=== PATIENT | male | born 1990 | race Caucasian/White ===

== ENCOUNTER 2017-12-12 03:47 | Inpatient (IN) | payer OTHER ==
[2017-12-12] VITALS (8 sets, daily range): BP systolic 107–119; BP diastolic 58–69; PULSE 86–117; RESP 17–20; TEMP 97.3–99; O2SAT 96–100
[~2017-12-12] VITALS: Ht 180.3 cm; Wt 79.6 kg
[2017-12-12] MEDS ORDERED: ONDANSETRON HCL 4 MG/2 ML VIAL ONE (03:52)
[2017-12-12] MEDS ORDERED: MORPHINE SULFATE 4 MG/ML INJ ONE ×2 (03:52→04:07)
[2017-12-12] MEDS ORDERED: PROPOFOL 1000 MG/100 ML INJ 100 ML ONE (03:57)
[2017-12-12] MEDS ORDERED: IOHEXOL 350 MG/ML 10 ML VIAL (for RAD DIAG) IVCONTRAST ONE (04:21)
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
[2017-12-12 04:29] LABS: AUTOMATED NEUTROPHIL # 15.3 TH/MM3 (1.8-7.7); BASOPHIL # 0.1 TH/MM3 (0-0.2); BASOPHIL % 0.4 % (0.0-2.0); EOSINOPHIL % 0.1 % (0.0-4.0); HEMATOCRIT 44.5 % (39.0-51.0); HEMOGLOBIN 15.3 GM/DL (13.0-17.0); LYMPH % 10.8 % (9.0-44.0); MEAN CELL VOLUME 88.9 FL (80.0-100.0); MEAN CORPUSCULAR HEMOGLOBIN 30.6 PG (27.0-34.0); MEAN CORPUSCULAR HGB CONC 34.4 % (32.0-36.0); MEAN PLATELET VOLUME 8.4 FL (7.0-11.0); MONOCYTE # 1.1 TH/MM3 (0-0.9); NEUT % 82.7 % (16.0-70.0); PLATELET COUNT 296 TH/MM3 (150-450); RED BLOOD COUNT 5.01 MIL/MM3 (4.50-5.90); RED CELL DISTRIBUTION WIDTH 13.4 % (11.6-17.2); WHITE BLOOD COUNT 18.5 TH/MM3 (4.0-11.0)
[2017-12-12 04:33] LABS: INTERNATIONAL NORMALIZED RATIO 1.2 RATIO
[2017-12-12] MEDS ORDERED: MISCELLANEOUS NURSING INFORMATION XX SCH (04:45)
[2017-12-12] MEDS ORDERED: ENALAPRILAT 1.25 MG/ML VIAL IV PUSH PRN (04:45)
[2017-12-12] MEDS ORDERED: SODIUM CHLORIDE 0.9% FLUSH 10 ML FLUSH IV FLUSH PRN (04:45)
[2017-12-12] MEDS ORDERED: CHLORHEXIDINE GLUCONATE 2 % 1 PACK (2 CLOTHS) TOP PRN (04:45)
[2017-12-12] MEDS ORDERED: ONDANSETRON HCL 4 MG/2 ML VIAL IV PUSH PRN (04:45)
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
[2017-12-12] MEDS ORDERED: MORPHINE SULFATE 4 MG/ML INJ IV PUSH PRN (05:45)
[2017-12-12] MEDS: SODIUM CHLOR 0.9% 1000 ML INJ 1,000 ML IV SCH (06:09)
[2017-12-12] MEDS ORDERED: DIPHTH/TETANUS/ACEL PERTUSSIS (BOOSTER) 0.5 ML VIAL/PFS IM ONE (06:16)
[2017-12-12] MEDS ORDERED: ceFAZolin 2 GM PREMIX 50 ML ONE (06:16)
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
[2017-12-12] MEDS ORDERED: POTASSIUM CHLOR 40 MEQ PREMIX 100 ML IV PRN ×2 (06:45)
[2017-12-12] MEDS ORDERED: MAGNESIUM OXIDE 400 MG TAB PO PRN (06:45)
[2017-12-12] MEDS ORDERED: POTASSIUM PHOSPHATE INJ 30 MMOL in SODIUM CHLOR 0.9% 250 ML INJ 250 ML IV PRN (06:45)
[2017-12-12] MEDS ORDERED: POTASSIUM PHOSPHATE MONOBASIC 500 MG TAB PO PRN (06:45)
[2017-12-12] MEDS ORDERED: MAGNESIUM SULFATE INJ 2 GM in SODIUM CHLORIDE 0.9% INJ 96 ML IV PRN (06:45)
[2017-12-12] MEDS ORDERED: POTASSIUM CHLOR 20 MEQ PREMIX 100 ML IV PRN ×2 (06:45)
[2017-12-12] MEDS ORDERED: POTASSIUM CHLORIDE 20 MEQ PWD PACKET PO PRN (06:45)
[2017-12-12] MEDS ORDERED: POTASSIUM PHOSPHATE MONOBASIC 500 MG TAB PO/TUBE PRN (06:45)
[2017-12-12] MEDS ORDERED: MAGNESIUM SULFATE INJ 4 GM in SODIUM CHLORIDE 0.9% INJ 92 ML IV PRN (06:45)
[2017-12-12] MEDS ORDERED: SODIUM PHOSPHATE INJ 30 MMOL in SODIUM CHLOR 0.9% 250 ML INJ 240 ML IV PRN (06:45)
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
[2017-12-12 07:48] LABS: MAGNESIUM 1.9 MG/DL (1.5-2.5); PHOSPHORUS 4.5 MG/DL (2.5-4.9)
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
[2017-12-12] MEDS: MORPHINE SULFATE 4 MG/ML INJ IV PUSH PRN (08:33)
[2017-12-12] MEDS: PANTOPRAZOLE SODIUM 40 MG VIAL IVP SCH (09:00)
[2017-12-12] MEDS: DOCUSATE SODIUM 100 MG CAP PO SCH ×2 (09:00→21:00)
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
[2017-12-12] MEDS ORDERED: NEOMYCIN/POLYMYXIN 1 ML G.U. IRRIGANT ONE (10:51)
[2017-12-12] MEDS ORDERED: LIDOCAINE 1%/EPINEPHrine 1:100,000 SOLN 30 ML VIAL ONE (10:54)
[2017-12-12] MEDS ORDERED: VANCOMYCIN 500 MG VIAL ONE (10:54)
--- NOTE | 2017-12-12 11:21 | HHI.PR ---
Immediate Post Op Note Procedure Date: Dec 12, 2017 Pre Op Diagnosis: Post Op Diagnosis: same Surgeon: Netting Inspector(s): see or sheet Findings: good hemostats Complications: none Specimen(s) removed: none Anesthesia: General Drains: None Patient to: PACU Patient Condition: Fair Norris Tan MD Dec 12, 2017 11:21
[2017-12-12] MEDS ORDERED: TOBRAMYCIN/DEXAMETHASONE OPTH OINT 3.5 GM TUBE ONE (11:27)
[2017-12-12] MEDS ORDERED: ROCURONIUM INJ 50 MG/5 ML SYRINGE IV PUSH ONE (12:00)
[2017-12-12] MEDS ORDERED: PHENYLEPH/NS 1000 MCG/10 ML SYR IV ONE (12:00)
[2017-12-12] MEDS ORDERED: ceFAZolin INJ 1,000 MG VIAL IV ONE ×2 (12:00→12:02)
[2017-12-12] MEDS ORDERED: PHENYLEPHRINE HCL 10 MG/ML VIAL IV ONE (12:00)
[2017-12-12] MEDS ORDERED: PROPOFOL 200 MG/20 ML AMP IV ONE (12:00)
[2017-12-12] MEDS ORDERED: SUCCINYLCHOLINE CHLORIDE 200 MG/10 ML VIAL IV ONE (12:00)
[2017-12-12] MEDS ORDERED: ONDANSETRON HCL 4 MG/2 ML VIAL IV ONE (12:00)
[2017-12-12] MEDS ORDERED: NORMOSOL R INJ 2,000 ML IV ONE (12:00)
[2017-12-12] MEDS ORDERED: ePHEDrine/NS 25 MG/5 ML SYRINGE IV ONE (12:00)
[2017-12-12] MEDS ORDERED: DEXAMETHASONE SOD PHOS 4 MG/ML VIAL IV ONE (12:00)
[2017-12-12] MEDS ORDERED: LIDOCAINE HCL 1% PF 5 ML SYRINGE OTHER ONE (12:00)
[2017-12-12] MEDS ORDERED: LACTATED RINGER'S 1000 ML INJ 2,000 ML IV ONE (12:00)
[2017-12-12] MEDS ORDERED: GLYCOPYRROLATE 1 MG/5 ML SYRINGE IV PUSH ONE (12:00)
[2017-12-12] MEDS ORDERED: ACETAMINOPHEN 1000 MG/100 ML 100 ML IV ONE (13:47)
[2017-12-12] MEDS ORDERED: BACITRACIN TOP OINT 15 GM TUBE ONE (14:40)
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
[2017-12-12] MEDS ORDERED: TOBRAMYCIN 0.3%/DEXAMETHASONE 0.1% OPHT SUSP 5 ML BTL ONE (15:36)
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
--- NOTE | 2017-12-12 16:33 | PD.OP ---
Operative Report Date of Surgery: Dec 12, 2017 Preoperative Diagnosis: (1) Laceration of forehead, complicated (2) Ruptured globe of right eye (3) Eyelid laceration, right Postoperative Diagnosis: (1) Laceration of forehead, complicated (2) Ruptured globe of right eye (3) Eyelid laceration, right Procedure: ruptured globe repair right eye, repair of complex right forehead, right eyebrow , right eyelid laceration Surgeon: Lisa Lezama Appliance Service Technician(s): none Operation and Findings: Patient was consented for surgery and taken back to the operating room. He was put under general anesthesia and prepped and draped in the usual sterile fashion for ophthalmic surgery. On examination he was found to have a stellate, complex 12 cm laceration/degloving injury of right forehead, right eyebrow and right eyelid. This was repaired with 3-0 chromic gut and 3-0 Prolene sutures. A wire lid speculum was placed in the right eye. A horizontal corneoscleral laceration was seen across the entire cornea and extending 4mm posterior to the limbus at 3 o'clock. A conjunctival peritomy was performed from 12 o'clock to 4 o'clock. OcuCoat was injected into the eye to reform it. 10-0 nylon was used to close the cornea. 8-0 nylon was used to close the limbus. 7-0 Vicryl was used to close the sclera and conjunctiva. Subconjunctival TobraDex was injected at the end of the case. The incisions were irrigated and found to be watertight. Tobradex ointment, a patch, and shield were placed on the right eye. The patient was sent to PACU in stable condition. Lisa Lezama MD Dec 12, 2017 16:33
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
[2017-12-12] MEDS ORDERED: LIDOCAINE HCL 2% 50 ML VIAL ONE (17:44)
--- NOTE | 2017-12-12 18:40 | RADRPT ---
EXAM DATE/TIME: 12/12/2017 16:31 [facility] COMPARISON: No previous studies available for comparison. INDICATIONS : Right elbow ORIF. MEDICAL HISTORY : None. SURGICAL HISTORY : None. ENCOUNTER: Initial ACUITY: 1 day PAIN SCORE: Non-responsive. LOCATION: Right Elbow FINDINGS: Multiple views were obtained during ORIF. Radial capitellar joint dislocation has been successfully r educed CONCLUSION: Successful reduction of a dislocated radial capitellar joint. Chad Smith MD on December 12, 2017 at 18:35 Board Certified Radiologist. This report was verified electronically.
[2017-12-12] MEDS ORDERED: DO NOT ADM ANY ANTICOAGULANT DRUGS PRN (19:15)
--- NOTE | 2017-12-12 19:19 | PD.ORT.PN ---
Subjective Subjective Remarks Patient reports pain controlled in PACU. Denies paresthesias right hand and arm. Objective Vitals Vital Signs Date Time Temp Pulse Resp B/P (MAP) Pulse Ox O2 Delivery O2 Flow Rate FiO2 12/12/17 19:15 100 14 126/69 (88) 100 Room Air 2 12/12/17 19:00 100 14 124/66 (85) 100 Room Air 2 12/12/17 18:45 98.0 108 14 132/70 (90) 100 Nasal Cannula 2 12/12/17 10:00 96 12/12/17 08:00 97.7 86 17 116/69 (85) 96 12/12/17 08:00 94 12/12/17 07:57 100 21 12/12/17 07:00 100 Room Air 12/12/17 06:00 Room Air 98 12/12/17 06:00 97 12/12/17 06:00 97.3 97 18 107/59 (75) 99 12/12/17 04:00 100 2.00 12/12/17 03:47 100 21 12/12/17 03:47 100 21 I/O 12/11/17 12/11/17 12/11/17 12/12/17 12/12/17 12/12/17 07:00 15:00 23:00 07:00 15:00 23:00 Intake Total 4500 ml Output Total 550 ml 1300 ml Balance -550 ml 3200 ml Other 4500 ml Output Urine Total 550 ml 1300 ml # Voids 1 Result Diagram: 12/12/17 0353 Other Results Laboratory Tests Test 12/12/17 03:53 Prothromb Time International Ratio 1.2 RATIO Prothrombin Time 12.0 SEC (9.8-11.6) Imaging Last 24 hours Impressions Thoracic Spine CT 12/12/174 Signed Impressions: Service Date/Time: Tuesday, December 12, 2017 04:17 - CONCLUSION: Minimal degenerative findings. No evidence of thoracic spine fracture. Kana Mendoza MD Pelvis X-Ray 12/12/174 Signed Impressions: Service Date/Time: Tuesday, December 12, 2017 03:51 - CONCLUSION: Right hip dislocation. Crescentic bone fragment likely representing acetabular fracture. Kana Mendoza MD Maxillofacial CT 12/12/17 0354 Signed Impressions: Service Date/Time: Tuesday, December 12, 2017 04:11 - CONCLUSION: 1. Injury of the right globe with marked deformity and hyperdensity indicating rupture of the right globe. 2. Bilateral nasal bone fractures, anterior wall left maxillary sinus fracture, medial wall, superior wall, and inferior wall left orbit fractures. 3. Extensive subcutaneous emphysema in the left side of the face. Kana Mendoza MD Lumbar Spine CT 12/12/17 0354 Signed Impressions: Service Date/Time: Tuesday, December 12, 2017 04:17 - CONCLUSION: No evidence of fracture of lumbar spine. Kana Mendoza MD Head CT 12/12/17 0354 Signed Impressions: Service Date/Time: Tuesday, December 12, 2017 04:11 - CONCLUSION: 1. Marked deformity and injury of the right globe. 2. Nasal bone/left-sided facial bone fractures. Stents in subcutaneous emphysema. 3. No acute intracranial hemorrhage identified. Kana Mendoza MD Chest X-Ray 12/12/17353 Signed Impressions: Service Date/Time: Tuesday, December 12, 2017 03:51 - CONCLUSION: No gross acute cardiopulmonary disease identified. Kana Mendoza MD Chest CT 12/12/17 0354 Signed Impressions: Service Date/Time: Tuesday, December 12, 2017 04:17 - CONCLUSION: 1. Multiple nondisplaced left-sided rib fractures. No evidence of pneumothorax. 2. Irregularity at the inferior aspect of the right scapula likely represents motion artifact. Kana Mendoza MD Cervical Spine CT 12/12/17 0354 Signed Impressions: Service Date/Time: Tuesday, December 12, 2017 04:11 - CONCLUSION: 1. Nondisplaced left posterior first rib fracture. 2. No evidence of fracture of the cervical spine. Kana Mendoza MD Abdomen/Pelvis CT 12/12/17 0354 Signed Impressions: Service Date/Time: Tuesday, December 12, 2017 04:17 - CONCLUSION: 1. Inferior right femoral head fracture. Femoral neck is intact. Dominant fracture fragment is displaced approximately 2 mm. 2. No other evidence of acute traumatic injury in the abdomen and pelvis. Kana Mendoza MD Radius/Ulna X-Ray 12/12/17 0000 Signed Impressions: Service Date/Time: Tuesday, December 12, 2017 05:11 - CONCLUSION: Posterior proximal forearm laceration. No evidence of fracture. Kana Mendoza MD Hip X-Ray 12/12/17 0000 Signed Impressions: Service Date/Time: Tuesday, December 12, 2017 03:51 - CONCLUSION: Postreduction radiograph showing right hip alignment within normal limits. Kana Mendoza MD Elbow X-Ray 12/12/17 0000 Signed Impressions: Service Date/Time: Tuesday, December 12, 2017 16:31 - CONCLUSION: Successful reduction of a dislocated radial capitellar joint. Chad Smith MD Elbow X-Ray 12/12/17 0000 Signed Impressions: Service Date/Time: Tuesday, December 12, 2017 05:24 - CONCLUSION: Proximal forearm lacerations with adjacent radiopaque foreign bodies on the skin or in the superficial soft tissues. No evidence of fracture. Kana Mendoza MD Objective Remarks Sling and long arm splint in place, Patient able to extend fingers and thumb. Sensation intact median/ulnar/radial distribution, <2 sec capillary refill Assessment & Plan Assessment and Plan 27yM POD0 s/p I&D right elbow, open reduction right radiocapitellar dislocation , lateral collateral ligament repair, repair extensor tendon fascia right elbow , debridement right elbow -Keep long arm splint in place, NWB right arm, followup in office 2 weeks for staple removal and transition to hinged elbow brace -No evidence of radial nerve injury -IV Ab for 48 hrs Airam Aleman MD Dec 12, 2017 19:19
[2017-12-12] MEDS ORDERED: MORPHINE SULFATE 2 MG/ML SYRINGE ONE (19:27)
[2017-12-12] MEDS ORDERED: KETOROLAC TROMETHAMINE 30 MG/ML (IVP) VIAL ONE (20:18)
[2017-12-12] MEDS ORDERED: KETOROLAC TROMETHAMINE 30 MG/ML (IVP) VIAL IV PUSH ONE (20:30)
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
[2017-12-12] MEDS: CHLORHEXIDINE GLUCONATE 2 % 1 PACK (2 CLOTHS) TOP SCH (21:19)
[2017-12-13] VITALS (10 sets, daily range): BP systolic 99–125; BP diastolic 49–69; PULSE 60–96; RESP 11–20; TEMP 98–98.5; O2SAT 97–100
[2017-12-13] MEDS: SODIUM CHLOR 0.9% 1000 ML INJ 1,000 ML IV SCH ×2 (00:45→05:31)
[2017-12-13] MEDS: MORPHINE SULFATE 4 MG/ML INJ IV PUSH PRN ×3 (03:01→09:27)
--- NOTE | 2017-12-13 03:20 | RADRPT ---
EXAM DATE/TIME: 12/13/2017 02:53 [facility] COMPARISON: CHEST SINGLE AP, December 12, 2017, 3:51. INDICATIONS : Shortness of breath. MEDICAL HISTORY : None. SURGICAL HISTORY : None. ENCOUNTER: Subsequent ACUITY: 2 days PAIN SCORE: 6/10 LOCATION: Bilateral chest FINDINGS: Single AP view of the chest. The lungs are clear. Cardiomediastinal silhouette within normal limits. No evidence of pleural effusion or pneumothorax. CONCLUSION: No acute cardiopulmonary disease identified. Kana Mendoza MD on December 13, 2017 at 3:17 Board Certified Radiologist. This report was verified electronically.
[2017-12-13 06:35] LABS: AUTOMATED NEUTROPHIL # 7.6 TH/MM3 (1.8-7.7); BASOPHIL % 0.2 % (0.0-2.0); HEMATOCRIT 23.6 % (39.0-51.0); HEMOGLOBIN 8.4 GM/DL (13.0-17.0); LYMPH % 11.4 % (9.0-44.0); LYMPHOCYTE # 1.1 TH/MM3 (1.0-4.8); MEAN CELL VOLUME 88.9 FL (80.0-100.0); MEAN CORPUSCULAR HEMOGLOBIN 31.5 PG (27.0-34.0); MEAN CORPUSCULAR HGB CONC 35.4 % (32.0-36.0); MEAN PLATELET VOLUME 8.8 FL (7.0-11.0); MONO % 9.2 % (0.0-8.0); MONOCYTE # 0.9 TH/MM3 (0-0.9); NEUT % 79.2 % (16.0-70.0); PLATELET COUNT 136 TH/MM3 (150-450); RED BLOOD COUNT 2.66 MIL/MM3 (4.50-5.90); RED CELL DISTRIBUTION WIDTH 13.5 % (11.6-17.2); WHITE BLOOD COUNT 9.5 TH/MM3 (4.0-11.0)
[2017-12-13 06:57] LABS: BICARBONATE 26.8 MEQ/L (21.0-32.0); CALCIUM 7.5 MG/DL (8.5-10.1); CREATININE 0.86 MG/DL (0.60-1.30)
[2017-12-13] MEDS: PANTOPRAZOLE SODIUM 40 MG VIAL IVP SCH (07:37)
[2017-12-13] MEDS: DOCUSATE SODIUM 100 MG CAP PO SCH (07:39)
--- NOTE | 2017-12-13 10:33 | HHI.PR ---
Subjective Remarks Sleeping comfortably. Doing well - no complaints of pain. Objective Vital Signs Date Time Temp Pulse Resp B/P (MAP) Pulse Ox O2 Delivery O2 Flow Rate FiO2 12/13/17 06:00 87 12/13/17 04:00 70 12/13/17 04:00 98.3 60 20 99/49 (66) 97 12/13/17 03:05 20 12/13/17 02:00 76 12/13/17 00:00 98.3 72 20 106/56 (73) 99 12/13/17 00:00 69 12/12/17 22:00 88 12/12/17 21:15 102 12/12/17 21:15 99.0 91 20 119/58 (78) 99 12/12/17 21:15 99 Room Air 12/12/17 21:15 Room Air 12/12/17 21:15 97.9 117 20 119/58 (78) 100 12/12/17 20:45 97 15 122/64 (83) 99 Room Air 2 12/12/17 20:30 98 15 119/67 (84) 100 Room Air 2 12/12/17 20:00 99 14 116/62 (80) 100 Room Air 2 12/12/17 19:45 97 13 113/58 (76) 100 Room Air 2 12/12/17 19:30 96 14 132/65 (87) 100 Room Air 2 12/12/17 19:15 100 14 126/69 (88) 100 Room Air 2 12/12/17 19:00 100 14 124/66 (85) 100 Room Air 2 12/12/17 18:45 98.0 108 14 132/70 (90) 100 Nasal Cannula 2 I/O 12/12/17 12/12/17 12/12/17 12/13/17 12/13/17 12/13/17 07:00 15:00 23:00 07:00 15:00 23:00 Intake Total 4700 ml 120 ml Output Total 550 ml 1300 ml 625 ml Balance -550 ml 3400 ml -505 ml Intake Oral 200 ml 120 ml Other 4500 ml Output Urine Total 550 ml 1300 ml 625 ml # Voids 1 # Bowel Movements 0 Result Diagram: 12/13/17 0533 12/13/17 0533 Objective Remarks Eye shield over right eye Assessment and Plan Problem List: (1) Ruptured globe of right eye ICD Codes: S05.31XA - Ocular laceration without prolapse or loss of intraocular tissue, right eye, initial encounter Plan: 1 day s/p repair. Keep patch on right eye. Will remove tomorrow. IV antibiotics/pain management per trauma team. (2) Laceration of forehead, complicated ICD Codes: S01.81XA - Laceration without foreign body of other part of head, initial encounter Plan: s/p repair. Will remove sutures in 1 week. (3) Eyelid laceration, right ICD Codes: S01.111A - Laceration without foreign body of right eyelid and periocular area, initial encounter Plan: s/p repair. Will remove sutures in 1 week. Lisa Lezama MD Dec 13, 2017 10:33
--- NOTE | 2017-12-13 10:39 | PD.ORT.PN ---
Subjective Subjective Remarks The patient says he is feeling better today. He does not remember meeting yesterday. Objective Vitals Vital Signs Date Time Temp Pulse Resp B/P (MAP) Pulse Ox O2 Delivery O2 Flow Rate FiO2 12/13/17 06:00 87 12/13/17 04:00 70 12/13/17 04:00 98.3 60 20 99/49 (66) 97 12/13/17 03:05 20 12/13/17 02:00 76 12/13/17 00:00 98.3 72 20 106/56 (73) 99 12/13/17 00:00 69 12/12/17 22:00 88 12/12/17 21:15 102 12/12/17 21:15 99.0 91 20 119/58 (78) 99 12/12/17 21:15 99 Room Air 12/12/17 21:15 Room Air 12/12/17 21:15 97.9 117 20 119/58 (78) 100 12/12/17 20:45 97 15 122/64 (83) 99 Room Air 2 12/12/17 20:30 98 15 119/67 (84) 100 Room Air 2 12/12/17 20:00 99 14 116/62 (80) 100 Room Air 2 12/12/17 19:45 97 13 113/58 (76) 100 Room Air 2 12/12/17 19:30 96 14 132/65 (87) 100 Room Air 2 12/12/17 19:15 100 14 126/69 (88) 100 Room Air 2 12/12/17 19:00 100 14 124/66 (85) 100 Room Air 2 12/12/17 18:45 98.0 108 14 132/70 (90) 100 Nasal Cannula 2 I/O 12/12/17 12/12/17 12/12/17 12/13/17 12/13/17 12/13/17 07:00 15:00 23:00 07:00 15:00 23:00 Intake Total 4700 ml 120 ml Output Total 550 ml 1300 ml 625 ml Balance -550 ml 3400 ml -505 ml Intake Oral 200 ml 120 ml Other 4500 ml Output Urine Total 550 ml 1300 ml 625 ml # Voids 1 # Bowel Movements 0 Result Diagram: 12/13/17 0533 12/13/17 0533 Imaging Last 24 hours Impressions Thoracic Spine CT 12/12/17353 Signed Impressions: Service Date/Time: Tuesday, December 12, 2017 04:17 - CONCLUSION: Minimal degenerative findings. No evidence of thoracic spine fracture. Kana Mendoza MD Pelvis X-Ray 12/12/17353 Signed Impressions: Service Date/Time: Tuesday, December 12, 2017 03:51 - CONCLUSION: Right hip dislocation. Crescentic bone fragment likely representing acetabular fracture. Kana Mendoza MD Maxillofacial CT 12/12/17353 Signed Impressions: Service Date/Time: Tuesday, December 12, 2017 04:11 - CONCLUSION: 1. Injury of the right globe with marked deformity and hyperdensity indicating rupture of the right globe. 2. Bilateral nasal bone fractures, anterior wall left maxillary sinus fracture, medial wall, superior wall, and inferior wall left orbit fractures. 3. Extensive subcutaneous emphysema in the left side of the face. Kana Mendoza MD Lumbar Spine CT 12/12/17353 Signed Impressions: Service Date/Time: Tuesday, December 12, 2017 04:17 - CONCLUSION: No evidence of fracture of lumbar spine. Kana Mendoza MD Head CT 12/12/17353 Signed Impressions: Service Date/Time: Tuesday, December 12, 2017 04:11 - CONCLUSION: 1. Marked deformity and injury of the right globe. 2. Nasal bone/left-sided facial bone fractures. Stents in subcutaneous emphysema. 3. No acute intracranial hemorrhage identified. Kana Mendoza MD Chest X-Ray 12/12/17353 Signed Impressions: Service Date/Time: Tuesday, December 12, 2017 03:51 - CONCLUSION: No gross acute cardiopulmonary disease identified. Kana Mendoza MD Chest CT 12/12/174 Signed Impressions: Service Date/Time: Tuesday, December 12, 2017 04:17 - CONCLUSION: 1. Multiple nondisplaced left-sided rib fractures. No evidence of pneumothorax. 2. Irregularity at the inferior aspect of the right scapula likely represents motion artifact. Kana Mendoza MD Cervical Spine CT 12/12/174 Signed Impressions: Service Date/Time: Tuesday, December 12, 2017 04:11 - CONCLUSION: 1. Nondisplaced left posterior first rib fracture. 2. No evidence of fracture of the cervical spine. Kana Mendoza MD Abdomen/Pelvis CT 12/12/17 0354 Signed Impressions: Service Date/Time: Tuesday, December 12, 2017 04:17 - CONCLUSION: 1. Inferior right femoral head fracture. Femoral neck is intact. Dominant fracture fragment is displaced approximately 2 mm. 2. No other evidence of acute traumatic injury in the abdomen and pelvis. Kana Mendoza MD Radius/Ulna X-Ray 12/12/17 0000 Signed Impressions: Service Date/Time: Tuesday, December 12, 2017 05:11 - CONCLUSION: Posterior proximal forearm laceration. No evidence of fracture. Kana Mendoza MD Hip X-Ray 12/12/17 0000 Signed Impressions: Service Date/Time: Tuesday, December 12, 2017 03:51 - CONCLUSION: Postreduction radiograph showing right hip alignment within normal limits. Kana Mendoza MD Elbow X-Ray 12/12/17 0000 Signed Impressions: Service Date/Time: Tuesday, December 12, 2017 16:31 - CONCLUSION: Successful reduction of a dislocated radial capitellar joint. Chad Smith MD Elbow X-Ray 12/12/17 0000 Signed Impressions: Service Date/Time: Tuesday, December 12, 2017 05:24 - CONCLUSION: Proximal forearm lacerations with adjacent radiopaque foreign bodies on the skin or in the superficial soft tissues. No evidence of fracture. Kana Mendoza MD Objective Remarks The patient has the abduction pillow between the legs today. He did still have the canvas knee splint applied. I have instructed the ICU nurse to remove the knee immobilizer and to continue with the abduction pillow. I educated the patient that I want him to be in the pillow at all times. When he does transferred to the wheelchair he can use regular pillows between the legs. This patient did have surgical management by the hand surgeon for the right elbow and did require ligament repair. This will limit this patient's ability to use a walker for ambulation. Therefore, he will unlikely be able to ambulate for approximately 6 weeks. I would like to keep the patient toe-touch weightbearing on the right side for approximately 6 weeks. It is possible we could start weightbearing a little earlier. However, given the repair of the right elbow are not sure that the hand surgeon would want us to be use that arm for weightbearing during that period of time. The patient seemed to have good understanding about the use of the abduction pillow. He should follow up with me in the office in approximately a week or so to repeat x-rays AP pelvis and lateral of the right hip. Assessment & Plan Assessment and Plan 27yM POD0 s/p I&D right elbow, open reduction right radiocapitellar dislocation , lateral collateral ligament repair, repair extensor tendon fascia right elbow , debridement right elbow -Keep long arm splint in place, NWB right arm, followup in office 2 weeks for staple removal and transition to hinged elbow brace -No evidence of radial nerve injury -IV Ab for 48 hrs Pollo Naranjo MD Dec 13, 2017 10:39
[2017-12-13 10:42] LABS: HEMATOCRIT 23.9 % (39.0-51.0); HEMOGLOBIN 8.5 GM/DL (13.0-17.0)
[2017-12-13] MEDS ORDERED: oxyCODONE/ACETAMINOPHEN 5 MG/325 MG TAB PO PRN (11:00)
--- NOTE | 2017-12-13 17:04 | RADRPT ---
EXAM DATE/TIME: 12/13/2017 16:18 [facility] COMPARISON: ELBOW RIGHT COMPLETE (4 VWS), December 12, 2017, 5:24. ELBOW RIGHT LIMITED (AP & LAT), December 12, 2017, 16:31. INDICATIONS : Right elbow pain MEDICAL HISTORY : None. SURGICAL HISTORY : None. ENCOUNTER: Initial ACUITY: 1 day PAIN SCORE: 4/10 LOCATION: Right elbow FINDINGS: Previously seen large skin defect has been compared with keyur. A splint is present. No fracture or unexpected foreign body demonstrated. CONCLUSION: Interim soft tissue closure and splint placement. No fracture or subluxation. Boone Marion MD on December 13, 2017 at 17:00 Board Certified Radiologist. This report was verified electronically.
[2017-12-13] MEDS: oxyCODONE/ACETAMINOPHEN 10 MG/325 MG TAB PO PRN (18:03)
[2017-12-13] MEDS: CHLORHEXIDINE GLUCONATE 2 % 1 PACK (2 CLOTHS) TOP SCH (19:43)
[2017-12-13] MEDS ORDERED: MORPHINE SULFATE 4 MG/ML INJ IV PUSH PRN (20:30)
[2017-12-13] MEDS: LIDOCAINE HCL 5% PATCH T-DERMAL SCH (20:30)
[2017-12-13] MEDS: DOCUSATE SODIUM 50 MG/SENNA 8.6 MG TAB PO SCH (20:32)
[2017-12-13] MEDS: ENOXAPARIN SODIUM 40 MG/0.4 ML SYRINGE SQ SCH (20:33)
[2017-12-13] MEDS: METHOCARBAMOL 500 MG TAB PO SCH (22:00)
[2017-12-14] VITALS: BP 109/58; PULSE 66; RESP 16; TEMP 97.8; O2SAT 99
[2017-12-14 04:00] VITALS: BP 114/58; PULSE 78; RESP 16; TEMP 98; O2SAT 99
[2017-12-14] MEDS: oxyCODONE/ACETAMINOPHEN 10 MG/325 MG TAB PO PRN ×5 (04:01→20:33)
[2017-12-14] MEDS: METHOCARBAMOL 500 MG TAB PO SCH ×3 (05:45→20:33)
--- NOTE | 2017-12-14 06:42 | RADRPT ---
EXAM DATE/TIME: 12/14/2017 05:47 [facility] COMPARISON: CT THORAX W CONTRAST, December 12, 2017, 4:17. CHEST SINGLE AP, December 13, 2017, 2:53. INDICATIONS : Pulmonary contusion, short of breath MEDICAL HISTORY : hip fracture, right elbow fracture, facial trauma SURGICAL HISTORY : None. ENCOUNTER: Subsequent ACUITY: 2 days PAIN SCORE: 10/10 LOCATION: Bilateral chest FINDINGS: A single view of the chest demonstrates the lungs to be symmetrically aerated without evidence of mas s, infiltrate or effusion. The cardiomediastinal contours are unremarkable. Osseous structures are intact. CONCLUSION: No acute disease. Tani Uriostegui MD on December 14, 2017 at 6:40 Board Certified Radiologist. This report was verified electronically.
[2017-12-14 07:23] VITALS: BP 121/63; PULSE 76; RESP 18; TEMP 97.9; O2SAT 100
[2017-12-14] MEDS: PANTOPRAZOLE SODIUM 40 MG VIAL IVP SCH (07:51)
[2017-12-14] MEDS: DOCUSATE SODIUM 50 MG/SENNA 8.6 MG TAB PO SCH ×2 (07:51→20:33)
[2017-12-14] MEDS: LIDOCAINE HCL 5% PATCH T-DERMAL SCH (07:51)
[2017-12-14 08:01] LABS: BASOPHIL # 0.1 TH/MM3 (0-0.2); BASOPHIL % 0.7 % (0.0-2.0); EOSINOPHIL % 0.7 % (0.0-4.0); HEMATOCRIT 22.2 % (39.0-51.0); HEMOGLOBIN 7.9 GM/DL (13.0-17.0); LYMPH % 20.3 % (9.0-44.0); LYMPHOCYTE # 1.4 TH/MM3 (1.0-4.8); MEAN CELL VOLUME 87.8 FL (80.0-100.0); MEAN CORPUSCULAR HEMOGLOBIN 31.4 PG (27.0-34.0); MEAN CORPUSCULAR HGB CONC 35.7 % (32.0-36.0); MEAN PLATELET VOLUME 9.2 FL (7.0-11.0); MONO % 7.1 % (0.0-8.0); MONOCYTE # 0.5 TH/MM3 (0-0.9); NEUT % 71.2 % (16.0-70.0); PLATELET COUNT 109 TH/MM3 (150-450); RED BLOOD COUNT 2.53 MIL/MM3 (4.50-5.90); RED CELL DISTRIBUTION WIDTH 12.7 % (11.6-17.2); WHITE BLOOD COUNT 7.1 TH/MM3 (4.0-11.0)
[2017-12-14 08:29] LABS: CALCIUM 7.6 MG/DL (8.5-10.1); CREATININE 0.69 MG/DL (0.60-1.30)
[2017-12-14 11:42] VITALS: BP 113/68; PULSE 63; RESP 18; TEMP 98.2; O2SAT 99
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
[2017-12-14] MEDS: MOXIFLOXACIN 0.5% OPHT SOLN 3 ML BTL RIGHT EYE SCH ×3 (13:00→22:30)
[2017-12-14] MEDS: prednisoLONE ACETATE 1% OPHT SUSP 5 ML BTL RIGHT EYE SCH ×3 (13:00→22:30)
--- NOTE | 2017-12-14 14:58 | HHI.PR ---
Subjective Remarks Sleeping comfortably. Doing well - no complaints of pain. Objective Vital Signs Date Time Temp Pulse Resp B/P (MAP) Pulse Ox O2 Delivery O2 Flow Rate FiO2 12/14/17 11:42 98.2 63 18 113/68 (83) 99 12/14/17 07:23 97.9 76 18 121/63 (82) 100 12/14/17 04:00 98.0 78 16 114/58 (76) 99 12/14/17 00:00 97.8 66 16 109/58 (75) 99 12/13/17 22:25 Room Air 12/13/17 20:00 98.3 70 16 117/56 (76) 99 12/13/17 16:00 98.0 81 16 116/54 (74) 99 I/O 12/13/17 12/13/17 12/13/17 12/14/17 12/14/17 12/14/17 07:00 15:00 23:00 07:00 15:00 23:00 Intake Total 120 ml 240 ml 240 ml Output Total 625 ml 700 ml 450 ml Balance -505 ml -460 ml -210 ml Intake Oral 120 ml 240 ml 240 ml Output Urine Total 625 ml 700 ml 450 ml # Voids 1 1 # Bowel Movements 0 Result Diagram: 12/14/1749 12/14/17 0649 Objective Remarks Va cc at near OD LP, OS 20/20 EOM full OU Pupils 2-1 OS, unable OD IOP deferred Anterior exam OD - eyelid sutures, SHAD, conj and corneal sutures intact, AC deep, no view of lens OS - eyelid ecchymoses and edema, C/S W&Q, K clear, AC deep, pupil round, lens clear Assessment and Plan Problem List: (1) Ruptured globe of right eye ICD Codes: S05.31XA - Ocular laceration without prolapse or loss of intraocular tissue, right eye, initial encounter Plan: 2 days s/p repair. Patch removed. Can use eye shield at night to protect it. Augmentin 875mg BID x 10 days. Vigamox QID OD. Prednisolone acetate 1% QID OD. No pressure to right eye at all. If patient getting discharged tomorrow, I will see him in my office. If he is still an inpatient I will see him at the hospital. (2) Laceration of forehead, complicated ICD Codes: S01.81XA - Laceration without foreign body of other part of head, initial encounter Plan: s/p repair. Will remove sutures in 1 week. (3) Eyelid laceration, right ICD Codes: S01.111A - Laceration without foreign body of right eyelid and periocular area, initial encounter Plan: s/p repair. Will remove sutures in 1 week. Lisa Lezama MD Dec 14, 2017 14:58
[2017-12-14 16:00] VITALS: BP 115/56; PULSE 66; RESP 18; TEMP 98; O2SAT 100
[2017-12-14] MEDS: AMOXICILLIN/CLAVULANATE K 875 MG TAB PO SCH (20:33)
[2017-12-14] MEDS: ENOXAPARIN SODIUM 40 MG/0.4 ML SYRINGE SQ SCH (20:34)
[2017-12-14 20:45] VITALS: BP 124/58; PULSE 84; RESP 22; TEMP 97.9; O2SAT 100
[2017-12-14] MEDS ORDERED: REMOVE OLD PATCH T-DERMAL SCH (21:00)
--- NOTE | 2017-12-14 22:35 | PD.ORT.PN ---
Subjective Subjective Remarks Patient reports pain controlled right elbow. Denies paresthesias right hand and arm. Objective Vitals Vital Signs Date Time Temp Pulse Resp B/P (MAP) Pulse Ox O2 Delivery O2 Flow Rate FiO2 12/14/17 16:00 98.0 66 18 115/56 (75) 100 12/14/17 11:42 98.2 63 18 113/68 (83) 99 12/14/17 07:23 97.9 76 18 121/63 (82) 100 12/14/17 04:00 98.0 78 16 114/58 (76) 99 12/14/17 00:00 97.8 66 16 109/58 (75) 99 I/O 12/13/17 12/13/17 12/13/17 12/14/17 12/14/17 12/14/17 07:00 15:00 23:00 07:00 15:00 23:00 Intake Total 120 ml 240 ml 240 ml 960 ml Output Total 625 ml 700 ml 450 ml Balance -505 ml -460 ml -210 ml 960 ml Intake Oral 120 ml 240 ml 240 ml 960 ml Output Urine Total 625 ml 700 ml 450 ml # Voids 1 1 3 # Bowel Movements 0 0 Result Diagram: 12/14/17 0649 12/14/17 0649 Imaging Last 24 hours Impressions Thoracic Spine CT 12/12/17353 Signed Impressions: Service Date/Time: Tuesday, December 12, 2017 04:17 - CONCLUSION: Minimal degenerative findings. No evidence of thoracic spine fracture. Kana Mendoza MD Pelvis X-Ray 12/12/17353 Signed Impressions: Service Date/Time: Tuesday, December 12, 2017 03:51 - CONCLUSION: Right hip dislocation. Crescentic bone fragment likely representing acetabular fracture. Kana Mendoza MD Maxillofacial CT 12/12/17 0354 Signed Impressions: Service Date/Time: Tuesday, December 12, 2017 04:11 - CONCLUSION: 1. Injury of the right globe with marked deformity and hyperdensity indicating rupture of the right globe. 2. Bilateral nasal bone fractures, anterior wall left maxillary sinus fracture, medial wall, superior wall, and inferior wall left orbit fractures. 3. Extensive subcutaneous emphysema in the left side of the face. Kana Mendoza MD Lumbar Spine CT 12/12/17 0354 Signed Impressions: Service Date/Time: Tuesday, December 12, 2017 04:17 - CONCLUSION: No evidence of fracture of lumbar spine. Kana Mendoza MD Head CT 12/12/17 0354 Signed Impressions: Service Date/Time: Tuesday, December 12, 2017 04:11 - CONCLUSION: 1. Marked deformity and injury of the right globe. 2. Nasal bone/left-sided facial bone fractures. Stents in subcutaneous emphysema. 3. No acute intracranial hemorrhage identified. Kaan Mendoza MD Chest X-Ray 12/12/17353 Signed Impressions: Service Date/Time: Tuesday, December 12, 2017 03:51 - CONCLUSION: No gross acute cardiopulmonary disease identified. Kana Mendoza MD Chest CT 12/12/17353 Signed Impressions: Service Date/Time: Tuesday, December 12, 2017 04:17 - CONCLUSION: 1. Multiple nondisplaced left-sided rib fractures. No evidence of pneumothorax. 2. Irregularity at the inferior aspect of the right scapula likely represents motion artifact. Kana Mendoza MD Cervical Spine CT 12/12/17353 Signed Impressions: Service Date/Time: Tuesday, December 12, 2017 04:11 - CONCLUSION: 1. Nondisplaced left posterior first rib fracture. 2. No evidence of fracture of the cervical spine. Kana Mendoza MD Abdomen/Pelvis CT 12/12/17 0354 Signed Impressions: Service Date/Time: Tuesday, December 12, 2017 04:17 - CONCLUSION: 1. Inferior right femoral head fracture. Femoral neck is intact. Dominant fracture fragment is displaced approximately 2 mm. 2. No other evidence of acute traumatic injury in the abdomen and pelvis. Kana Mendoza MD Radius/Ulna X-Ray 12/12/17 0000 Signed Impressions: Service Date/Time: Tuesday, December 12, 2017 05:11 - CONCLUSION: Posterior proximal forearm laceration. No evidence of fracture. Kana Mendoza MD Hip X-Ray 12/12/17 0000 Signed Impressions: Service Date/Time: Tuesday, December 12, 2017 03:51 - CONCLUSION: Postreduction radiograph showing right hip alignment within normal limits. Kana Mendoza MD Elbow X-Ray 12/12/17 0000 Signed Impressions: Service Date/Time: Tuesday, December 12, 2017 16:31 - CONCLUSION: Successful reduction of a dislocated radial capitellar joint. Chad Smith MD Elbow X-Ray 12/12/17 0000 Signed Impressions: Service Date/Time: Tuesday, December 12, 2017 05:24 - CONCLUSION: Proximal forearm lacerations with adjacent radiopaque foreign bodies on the skin or in the superficial soft tissues. No evidence of fracture. Kana Mendoza MD Objective Remarks Long arm splint in place, able to flex/extend fingers, <2 sec capillary refill, sensation intact median/ulnar/radial distribution Assessment & Plan Assessment and Plan 27yM POD2 s/p I&D right elbow, open reduction right radiocapitellar dislocation , lateral collateral ligament repair, repair extensor tendon fascia right elbow , debridement right elbow -Keep long arm splint in place, NWB right arm, followup in office 2 weeks for staple removal and transition to hinged elbow brace. Patient states he may be going to [place] after discharge to stay with his mother. I would like to see the patient one time in the office. We can assist arranging followup in [place] possibly with Dr Spaulding. -IV Ab for 48 hrs, okay to discharge per hand surgery after 48 hrs antibiotics Airam Aleman MD Dec 14, 2017 22:35
[2017-12-15 00:20] VITALS: BP 101/58; PULSE 60; RESP 17; TEMP 97.1; O2SAT 98
[2017-12-15] MEDS: oxyCODONE/ACETAMINOPHEN 10 MG/325 MG TAB PO PRN ×5 (00:33→15:18)
[2017-12-15 03:50] VITALS: BP 109/57; PULSE 60; RESP 17; TEMP 97.8; O2SAT 99
[2017-12-15] MEDS: CHLORHEXIDINE GLUCONATE 2 % 1 PACK (2 CLOTHS) TOP SCH (03:57)
[2017-12-15] MEDS: METHOCARBAMOL 500 MG TAB PO SCH ×2 (04:32→13:49)
[2017-12-15 05:06] LABS: BASOPHIL % 0.8 % (0.0-2.0); EOSINOPHIL # 0.1 TH/MM3 (0-0.4); EOSINOPHIL % 2.1 % (0.0-4.0); HEMOGLOBIN 8.5 GM/DL (13.0-17.0); LYMPH % 24.5 % (9.0-44.0); LYMPHOCYTE # 1.5 TH/MM3 (1.0-4.8); MEAN CELL VOLUME 86.2 FL (80.0-100.0); MEAN CORPUSCULAR HEMOGLOBIN 31.8 PG (27.0-34.0); MEAN PLATELET VOLUME 8.8 FL (7.0-11.0); MONO % 6.5 % (0.0-8.0); MONOCYTE # 0.4 TH/MM3 (0-0.9); NEUT % 66.1 % (16.0-70.0); PLATELET COUNT 143 TH/MM3 (150-450); RED BLOOD COUNT 2.66 MIL/MM3 (4.50-5.90); RED CELL DISTRIBUTION WIDTH 12.6 % (11.6-17.2); WHITE BLOOD COUNT 6.1 TH/MM3 (4.0-11.0)
[2017-12-15 05:28] LABS: BICARBONATE 25.7 MEQ/L (21.0-32.0); CREATININE 0.71 MG/DL (0.60-1.30)
[2017-12-15 05:31] LABS: MEAN CORPUSCULAR HGB CONC 36.9 % (32.0-36.0)
[2017-12-15] MEDS ORDERED: WALKER/FOLDING1 MIS (06:25)
[2017-12-15] MEDS ORDERED: WHEEMIS3 (06:25)
--- NOTE | 2017-12-15 06:26 | HHI.FF ---
Face to Face Verification Diagnosis: (1) Laceration of right upper extremity (2) Ribs, multiple fractures (3) Fracture of femoral head (4) Eyelid laceration, right (5) Ruptured globe of right eye (6) Hip dislocation, right (7) Unspecified subluxation of right radial head, initial encounter (8) Laceration of forehead, complicated Physical Therapy Order: Evaluate and Treat, Improve ambulation, Strength and gait training Home Health Nursing Order: Nursing assessment with vital signs I have seen patient Himanshu [facility] on 12/15/17. My clinical findings support the need for the requested home health care services because: Limited ability to care for self High risk of falls I certify that my clinical findings support that this patient is homebound because: Post-op weakness Jose Harding ASSISTANT CLINICAL DIRECTOR Dec 15, 2017 06:26
[2017-12-15] MEDS ORDERED: VIGA0.5D RIGHT EYE (06:48)
[2017-12-15] MEDS ORDERED: METH500T3 PO (06:48)
[2017-12-15] MEDS ORDERED: PERI PO (06:48)
[2017-12-15] MEDS ORDERED: AMOX875T2 PO (06:48)
[2017-12-15] MEDS ORDERED: OXYC1TAB63 PO (06:48)
[2017-12-15] MEDS ORDERED: PRED1SUS6 RIGHT EYE (06:48)
[2017-12-15 07:36] VITALS: BP 114/54; PULSE 63; RESP 18; TEMP 97.9; O2SAT 98
[2017-12-15] MEDS: DOCUSATE SODIUM 50 MG/SENNA 8.6 MG TAB PO SCH (08:32)
[2017-12-15] MEDS: LIDOCAINE HCL 5% PATCH T-DERMAL SCH (08:33)
[2017-12-15] MEDS: AMOXICILLIN/CLAVULANATE K 875 MG TAB PO SCH (08:37)
[2017-12-15] MEDS: prednisoLONE ACETATE 1% OPHT SUSP 5 ML BTL RIGHT EYE SCH ×2 (08:39→13:50)
[2017-12-15] MEDS: MOXIFLOXACIN 0.5% OPHT SOLN 3 ML BTL RIGHT EYE SCH ×2 (08:39→13:50)
[2017-12-15] MEDS ORDERED: PANTOPRAZOLE SOD 40 MG DELAYED RELEASE TAB PO SCH (09:00)
[2017-12-15 12:00] VITALS: BP 119/64; PULSE 71; RESP 18; TEMP 97.9; O2SAT 100
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
--- NOTE | 2017-12-15 12:58 | HHI.PR ---
Subjective Remarks Sleeping comfortably. Doing well - no complaints of pain. Objective Vital Signs Date Time Temp Pulse Resp B/P (MAP) Pulse Ox O2 Delivery O2 Flow Rate FiO2 12/15/17 09:36 18 12/15/17 07:36 97.9 63 18 114/54 (74) 98 12/15/17 03:50 97.8 60 17 109/57 (74) 99 12/15/17 00:20 97.1 60 17 101/58 (72) 98 12/14/17 20:45 97.9 84 22 124/58 (80) 100 12/14/17 16:00 98.0 66 18 115/56 (75) 100 I/O 12/14/17 12/14/17 12/14/17 12/15/17 12/15/17 12/15/17 07:00 15:00 23:00 07:00 15:00 23:00 Intake Total 240 ml 960 ml 720 ml Output Total 450 ml 750 ml Balance -210 ml 960 ml -30 ml Intake Oral 240 ml 960 ml 720 ml Output Urine Total 450 ml 750 ml # Voids 1 3 # Bowel Movements 0 0 Result Diagram: 12/15/17 0355 12/15/17 0355 Objective Remarks Va cc at near OD LP, OS 20/20 EOM full OU Pupils 2-1 OS, unable OD IOP deferred Anterior exam OD - eyelid sutures, SHAD, conj and corneal sutures intact, AC deep, no view of lens OS - eyelid ecchymoses and edema, C/S W&Q, K clear, AC deep, pupil round, lens clear Assessment and Plan Problem List: (1) Ruptured globe of right eye ICD Codes: S05.31XA - Ocular laceration without prolapse or loss of intraocular tissue, right eye, initial encounter Plan: 3 days s/p repair. Can use eye shield at night to protect it. Augmentin 875mg BID x 10 days. Vigamox QID OD. Prednisolone acetate 1% QID OD. No pressure to right eye at all. Follow up in office in 1 week. Call to make appt [phone]. [address] (2) Laceration of forehead, complicated ICD Codes: S01.81XA - Laceration without foreign body of other part of head, initial encounter Plan: s/p repair. Will remove sutures in 1 week. (3) Eyelid laceration, right ICD Codes: S01.111A - Laceration without foreign body of right eyelid and periocular area, initial encounter Plan: s/p repair. Will remove sutures in 1 week. Problem Qualifiers (1) Ruptured globe of right eye: Qualified Codes: S05.31XA - Ocular laceration without prolapse or loss of intraocular tissue, right eye, initial encounter (2) Laceration of forehead, complicated: Qualified Codes: S01.81XA - Laceration without foreign body of other part of head, initial encounter (3) Eyelid laceration, right: Qualified Codes: S01.111A - Laceration without foreign body of right eyelid and periocular area, initial encounter Lisa Lezama MD Dec 15, 2017 12:58
[2017-12-15 13:50] VITALS: RESP 18
== END 2017-12-15 15:27 | disposition home health service (06) | DRG 958 ==
LOC: NEPI 03:47 → NEDA 04:42 → EDBD 04:42 → N03A 04:46 → N03B 18:53 → N06A 12-13 12:38
PROVIDERS: ADMIT Surgery; ATTEND Surgery
PROC: 0MQ30ZZ Repair Right Elbow Bursa and Ligament, Open Approach (ICD-10-PCS; 2017-12-12)
PROC: 0RSL0ZZ Reposition Right Elbow Joint, Open Approach (ICD-10-PCS; 2017-12-12)
PROC: 0LQ50ZZ Repair Right Lower Arm and Wrist Tendon, Open Approach (ICD-10-PCS; 2017-12-12)
PROC: 09QKXZZ Repair Nasal Mucosa and Soft Tissue, External Approach (ICD-10-PCS; 2017-12-12)
PROC: 0CQ0XZZ Repair Upper Lip, External Approach (ICD-10-PCS; 2017-12-12)
PROC: 0HQ1XZZ Repair Face Skin, External Approach (ICD-10-PCS; 2017-12-12)
PROC: 08QNXZZ Repair Right Upper Eyelid, External Approach (ICD-10-PCS; 2017-12-12)
PROC: 0HQ1XZZ Repair Face Skin, External Approach (ICD-10-PCS; 2017-12-12)
PROC: 3E10X8Z Irrigation of Skin and Mucous Membranes using Irrigating Substance (ICD-10-PCS; 2017-12-12)
PROC: 0SS9XZZ Reposition Right Hip Joint, External Approach (ICD-10-PCS; 2017-12-12)
PROC: 08Q6XZZ Repair Right Sclera, External Approach (ICD-10-PCS; principal; 2017-12-12 11:17)
PROC: 08QSXZZ Repair Right Conjunctiva, External Approach (ICD-10-PCS; 2017-12-12 11:17)
PROC: 08Q8XZZ Repair Right Cornea, External Approach (ICD-10-PCS; 2017-12-12 11:17)
DX: S05.21XA Ocular laceration and rupture with prolapse or loss of intraocular tissue, right eye, initial encounter (principal); S72.051A Unspecified fracture of head of right femur, initial encounter for closed fracture; S32.401A Unspecified fracture of right acetabulum, initial encounter for closed fracture; S22.42XA Multiple fractures of ribs, left side, initial encounter for closed fracture; S27.321A Contusion of lung, unilateral, initial encounter; S02.19XA Other fracture of base of skull, initial encounter for closed fracture; S73.014A Posterior dislocation of right hip, initial encounter; S02.82XA Fracture of other specified skull and facial bones, left side, initial encounter for closed fracture; S02.40DA Maxillary fracture, left side, initial encounter for closed fracture; S02.32XA Fracture of orbital floor, left side, initial encounter for closed fracture; S01.21XA Laceration without foreign body of nose, initial encounter; S01.81XA Laceration without foreign body of other part of head, initial encounter; V47.5XXA Car driver injured in collision with fixed or stationary object in traffic accident, initial encounter; Y92.410 Unspecified street and highway as the place of occurrence of the external cause; Y93.9 Activity, unspecified; Y99.9 Unspecified external cause status; Y90.6 Blood alcohol level of 120-199 mg/100 ml; F10.129 Alcohol abuse with intoxication, unspecified; S01.111A Laceration without foreign body of right eyelid and periocular area, initial encounter; S01.511A Laceration without foreign body of lip, initial encounter; S02.2XXA Fracture of nasal bones, initial encounter for closed fracture; S06.0X0A Concussion without loss of consciousness, initial encounter; S51.011A Laceration without foreign body of right elbow, initial encounter; S53.001A Unspecified subluxation of right radial head, initial encounter; S51.021A Laceration with foreign body of right elbow, initial encounter; S53.431A Radial collateral ligament sprain of right elbow, initial encounter
CPT/HCPCS: 27265; 70450; 70486; 71045; 71260; 72125; 72129; 72132; 72170; 73070; 73080; 73090; 73501; 74177; 76000; 80048; 80307; 83735; 84100; 85014; 85018; 85025; 85610; 85730; 86850; 86900; 86901; 86920; 90471; 90715; 96374; 96375; 99152; 99291; C9113; G0390; J0131; J0330; J0690; J1100; J1650; J1885; J2270; J2370; J2405; J3010; J3370; J7030; J7120; L1830; Q9967